=== PATIENT | male | born 1985 ===

== ENCOUNTER 2021-12-14 08:34 | Emergency (ER) | payer OTHER ==
[2021-12-14] MEDS ORDERED: Bacitracin Oint 1 GM U/D Packet TOP ONE (08:44)
[2021-12-14] MEDS ORDERED: Lidocaine 1% 30 ML SDV INJECT ONE (08:44)
[2021-12-14] MEDS ORDERED: Diphtheria,Pertussis(Acell),Tetanus Vaccine 0.5 ML Syringe IM ONE (09:00)
== END 2021-12-14 09:51 | disposition home or self-care (01) ==
LOC: DL.ED 08:34
DX: S61.211A Laceration without foreign body of left index finger without damage to nail, initial encounter (principal); Z88.0 Allergy status to penicillin; Z91.038 Other insect allergy status; Z88.1 Allergy status to other antibiotic agents; Z23 Encounter for immunization; W26.8XXA Contact with other sharp object(s), not elsewhere classified, initial encounter
CPT/HCPCS: 12002; 90471; 90715; 99282; 99282-25

== ENCOUNTER 2023-12-09 20:09 | Emergency (ER) | payer OTHER ==
[2023-12-09] MEDS: Ketorolac 30 MG/ML SDV IM ONE (22:02)
== END 2023-12-09 22:15 | disposition home or self-care (01) ==
LOC: DL.ED 20:09 → MERGE 20:09 → DL.ED 22:15
DX: S93.401A Sprain of unspecified ligament of right ankle, initial encounter (principal); F17.290 Nicotine dependence, other tobacco product, uncomplicated; Z91.030 Bee allergy status; Z91.038 Other insect allergy status; Z88.0 Allergy status to penicillin; Z88.1 Allergy status to other antibiotic agents; W18.42XA Slipping, tripping and stumbling without falling due to stepping into hole or opening, initial encounter
CPT/HCPCS: 73610; 96372; 99283; J1885